=== PATIENT | female | born 1985 | race Caucasian/White ===

== ENCOUNTER 2016-09-30 23:59 | Emergency (ER) | payer OTHER ==
[~2016-09-30] VITALS: Ht 1676 cm; Wt 83.9 kg
[~2016-09-30 23:59] MED LIST: BIAXIN500 MG PO; BIRTH CONTROL1 EAC1 PO; FLONASE ALLERG9.9 ML NAS; HYDROCODONE BIT1 T11 PO; IBU800 M1 PO; LEVAQUIN750 M1 PO; LOESTRIN FE PO; OMNICEF300 MG PO; PREDNISONE20 MG PO; PRENATAL1 TAB PO; SEASONIQUE1 TAB PO; TRAMADOL HCL50 MG PO; VIBRAMYCIN100 MG PO; ZOFRAN ODT4 MG SL
[2016-10-01] MEDS ORDERED: Motrin,Rufen800 MG PO (01:24)
[2016-10-01] MEDS ORDERED: CYCLOBENZAPRINE5 M3 PO (01:24)
== END 2016-10-01 02:45 | disposition home or self-care (01) ==
LOC: ED 23:59
DX: M54.32 Sciatica, left side (principal); G43.909 Migraine, unspecified, not intractable, without status migrainosus; Z88.0 Allergy status to penicillin; Z88.8 Allergy status to other drugs, medicaments and biological substances

== ENCOUNTER → 2016-10-06 | Outpatient (CLI) | payer OTHER ==
[~2016-10-06] MED LIST changes: +CYCLOBENZAPRINE5 M3 PO; +Motrin,Rufen800 MG PO
== END | disposition home or self-care (01) ==
LOC: MRI 07:49
DX: M48.06 Spinal stenosis, lumbar region (principal); M54.42 Lumbago with sciatica, left side; M79.606 Pain in leg, unspecified

== ENCOUNTER 2017-09-04 21:41 | Emergency (ER) | payer OTHER ==
[~2017-09-04] VITALS: Ht 165.1 cm; Wt 89.8 kg
[2017-09-04 22:08] LABS: BILIRUBIN NEGATIVE (NEGATIVE); BLOOD 2+ (NEGATIVE); CLARITY SL CLOUDY (CLEAR); COLOR YELLOW (YELLOW); GLUCOSE NEGATIVE (NEGATIVE); KETONE NEGATIVE (NEGATIVE); LEUKO ESTERASE NEGATIVE (NEGATIVE); NITRITE NEGATIVE (NEGATIVE)
[2017-09-04 22:15] LABS: BACTERIA 3+
[2017-09-04 22:16] LABS: EPITHELIAL CELLS 21-30; MUCOUS TRACE
[2017-09-04 22:20] LABS: BASO # 0.1 10*3/uL (0.0-0.1); BASO % 0.6 % (0.0-1.0); EOS # 0.3 10*3/uL (0.0-0.4); HEMATOCRIT 38.8 % (37.0-47.0); HEMOGLOBIN 12.8 g/dl (12.0-16.0); LYMPH # 2.8 10*3/uL (1.3-4.4); LYMPH % 32.5 % (27.0-41.0); MEAN CELL VOLUME 93.9 fl (81.0-99.0); MONO # 0.4 10*3/uL (0.1-1.0); MONO % 4.8 % (3.0-9.0); NEUT # 5.2 10*3/uL (2.3-7.9); NEUT % 58.9 % (47.0-73.0); PLATELET COUNT AUTOMATED 209 10*3/uL (130-400); RED BLOOD COUNT 4.13 10*6/uL (4.10-5.10); RED CELL DISTRI WIDTH 12.3 % (0-14.5); WHITE BLOOD COUNT 8.7 10*3/uL (4.8-10.8)
[2017-09-04 22:34] LABS: ALBUMIN 3.4 gm/dl (3.1-4.5); ALKALINE PHOSPHATASE 61 U/L (45-117); BUN 13 mg/dl (7-24); CHLORIDE 108 mmol/L (98-107); CREATININE 0.83 mg/dL (0.55-1.02); SGOT/AST 10 IU/L (3-35); SGPT/ALT 18 U/L (12-78); SODIUM 141 mmol/L (136-145)
[2017-09-04] MEDS ORDERED: ZOFRAN ODT4 MG SL (23:52)
== END 2017-09-04 23:59 | disposition home or self-care (01) ==
LOC: ED 21:41
PROVIDERS: Emergency Medicine Emergency Medical Services
DX: G43.B0 Ophthalmoplegic migraine, not intractable (principal); Z79.899 Other long term (current) drug therapy; Z88.0 Allergy status to penicillin; Z88.6 Allergy status to analgesic agent; Z88.8 Allergy status to other drugs, medicaments and biological substances

== ENCOUNTER 2017-12-24 20:07 | Emergency (ER) | payer OTHER ==
[~2017-12-24] VITALS: Ht 165.1 cm; Wt 86.2 kg
== END 2017-12-24 20:59 | disposition home or self-care (01) ==
LOC: ED 20:07
DX: G43.909 Migraine, unspecified, not intractable, without status migrainosus (principal); Z88.0 Allergy status to penicillin; Z88.8 Allergy status to other drugs, medicaments and biological substances; Z79.899 Other long term (current) drug therapy

== ENCOUNTER 2018-04-08 09:02 | Emergency (ER) | payer BC ==
[~2018-04-08] VITALS: Ht 165.1 cm; Wt 86.2 kg
[2018-04-08] MEDS ORDERED: SEPTDS PO (09:35)
[2018-04-08] MEDS ORDERED: IBUPROFEN600 MG PO (09:35)
== END 2018-04-08 11:29 | disposition home or self-care (01) ==
LOC: ED 09:02
DX: S60.012A Contusion of left thumb without damage to nail, initial encounter (principal); Z88.0 Allergy status to penicillin; Z88.8 Allergy status to other drugs, medicaments and biological substances; Z79.899 Other long term (current) drug therapy; W23.0XXA Caught, crushed, jammed, or pinched between moving objects, initial encounter; Y93.89 Activity, other specified; Y92.89 Other specified places as the place of occurrence of the external cause; Y99.8 Other external cause status

== ENCOUNTER 2019-03-10 20:19 | Emergency (ER) | payer BC ==
[~2019-03-10] VITALS: Ht 165.1 cm; Wt 81.6 kg
[~2019-03-10 20:19] MED LIST changes: +IBUPROFEN600 MG PO; +SEPTDS PO
[2019-03-10 20:56] LABS: BILIRUBIN NEGATIVE (NEGATIVE); BLOOD NEGATIVE (NEGATIVE); CLARITY CLEAR (CLEAR); COLOR YELLOW (YELLOW); GLUCOSE NEGATIVE (NEGATIVE); KETONE NEGATIVE (NEGATIVE); LEUKO ESTERASE NEGATIVE (NEGATIVE); NITRITE NEGATIVE (NEGATIVE); SPECIFIC GRAVITY 1.015 (1.005-1.030); UROBILINOGEN 0.2 E.U./dl (0.2-1.0)
[2019-03-10 21:08] LABS: BACTERIA TRACE; EPITHELIAL CELLS 0-2
[2019-03-10 21:15] LABS: BASO % 0.4 % (0.0-1.0); EOS # 0.1 10*3/uL (0.0-0.4); EOS % 1.1 % (1.0-4.0); HEMATOCRIT 40.4 % (37.0-47.0); HEMOGLOBIN 13.4 g/dl (12.0-16.0); LYMPH # 2.8 10*3/uL (1.3-4.4); LYMPH % 29.6 % (27.0-41.0); MEAN CELL VOLUME 93.7 fl (81.0-99.0); MEAN CORPUSCULAR HGB 31.1 pg (27.0-31.0); MEAN CORPUSCULAR HGB CONC 33.2 g/dl (33.0-37.0); MEAN PLATELET VOLUME 12.8 fl (9.6-12.3); MONO # 0.5 10*3/uL (0.1-1.0); MONO % 4.7 % (3.0-9.0); NEUT # 6.1 10*3/uL (2.3-7.9); NEUT % 63.9 % (47.0-73.0); PLATELET COUNT AUTOMATED 241 10*3/uL (130-400); RED BLOOD COUNT 4.31 10*6/uL (4.10-5.10); RED CELL DISTRI WIDTH 11.9 % (0-14.5); WHITE BLOOD COUNT 9.5 10*3/uL (4.8-10.8)
[2019-03-10 21:30] LABS: ALBUMIN 3.1 gm/dl (3.1-4.5); ALKALINE PHOSPHATASE 66 U/L (45-117); BUN 9 mg/dl (7-24); CHLORIDE 108 mmol/L (98-107); CREATININE 0.89 mg/dL (0.55-1.02); LIPASE 121 U/L (73-393); SGOT/AST 15 IU/L (3-35); SGPT/ALT 26 U/L (12-78); SODIUM 139 mmol/L (136-145); TOTAL PROTEIN 7.4 gm/dL (6.4-8.2)
[2019-03-10] MEDS ORDERED: ANAPROX DS550 MG PO (22:19)
== END 2019-03-10 22:35 | disposition home or self-care (01) ==
LOC: ED 20:19
PROVIDERS: Physician Assistant
DX: N83.202 Unspecified ovarian cyst, left side (principal); G43.909 Migraine, unspecified, not intractable, without status migrainosus; Z79.899 Other long term (current) drug therapy; Z88.0 Allergy status to penicillin; Z88.8 Allergy status to other drugs, medicaments and biological substances

== ENCOUNTER 2019-05-17 06:44 | Emergency (ER) | payer BC ==
[~2019-05-17] VITALS: Ht 165.1 cm; Wt 87.1 kg
[~2019-05-17 06:44] MED LIST changes: +ANAPROX DS550 MG PO
[2019-05-17 07:38] LABS: BASO % 0.6 % (0.0-1.0); EOS # 0.2 10*3/uL (0.0-0.4); EOS % 2.2 % (1.0-4.0); HEMATOCRIT 41.2 % (37.0-47.0); HEMOGLOBIN 13.7 g/dl (12.0-16.0); LYMPH # 2.3 10*3/uL (1.3-4.4); LYMPH % 33.4 % (27.0-41.0); MEAN CELL VOLUME 93.4 fl (81.0-99.0); MEAN CORPUSCULAR HGB 31.1 pg (27.0-31.0); MEAN CORPUSCULAR HGB CONC 33.3 g/dl (33.0-37.0); MEAN PLATELET VOLUME 12.3 fl (9.6-12.3); MONO # 0.4 10*3/uL (0.1-1.0); MONO % 5.2 % (3.0-9.0); NEUT % 58.5 % (47.0-73.0); PLATELET COUNT AUTOMATED 249 10*3/uL (130-400); RED BLOOD COUNT 4.41 10*6/uL (4.10-5.10); RED CELL DISTRI WIDTH 12.2 % (0-14.5); WHITE BLOOD COUNT 6.9 10*3/uL (4.8-10.8)
[2019-05-17 07:52] LABS: ALBUMIN 3.4 gm/dl (3.1-4.5); ALKALINE PHOSPHATASE 60 U/L (45-117); BUN 12 mg/dl (7-24); CHLORIDE 109 mmol/L (98-107); CREATININE 0.85 mg/dL (0.55-1.02); POTASSIUM 3.9 mmol/L (3.5-5.1); SGOT/AST 16 IU/L (3-35); SGPT/ALT 27 U/L (12-78); SODIUM 140 mmol/L (136-145); TOTAL PROTEIN 7.6 gm/dL (6.4-8.2)
[2019-05-17 08:05] LABS: BILIRUBIN NEGATIVE (NEGATIVE); BLOOD 3+ (NEGATIVE); CLARITY CLOUDY (CLEAR); COLOR YELLOW (YELLOW); GLUCOSE NEGATIVE (NEGATIVE); KETONE NEGATIVE (NEGATIVE); SPECIFIC GRAVITY 1.025 (1.005-1.030)
[2019-05-17 08:06] LABS: BACTERIA 2+; LEUKO ESTERASE TRACE (NEGATIVE); NITRITE NEGATIVE (NEGATIVE); UROBILINOGEN 0.2 E.U./dl (0.2-1.0)
[2019-05-17] MEDS ORDERED: Motrin,Rufen800 MG PO (12:00)
== END 2019-05-17 12:30 | disposition home or self-care (01) ==
LOC: ED 06:44
PROVIDERS: Emergency Medicine
DX: R10.9 Unspecified abdominal pain (principal); R11.0 Nausea; K59.00 Constipation, unspecified; G43.909 Migraine, unspecified, not intractable, without status migrainosus; Z88.0 Allergy status to penicillin; Z88.8 Allergy status to other drugs, medicaments and biological substances

== ENCOUNTER 2019-12-25 09:55 | Emergency (ER) | payer BC ==
[~2019-12-25] VITALS: Ht 165.1 cm; Wt 90.7 kg
[2019-12-25 10:55] LABS: BASO % 0.6 % (0.0-1.0); EOS # 0.1 10*3/uL (0.0-0.4); EOS % 1.3 % (1.0-4.0); HEMATOCRIT 40.5 % (37.0-47.0); LYMPH # 1.7 10*3/uL (1.3-4.4); LYMPH % 27.6 % (27.0-41.0); MEAN CELL VOLUME 93.3 fl (81.0-99.0); MEAN CORPUSCULAR HGB 30.4 pg (27.0-31.0); MEAN CORPUSCULAR HGB CONC 32.6 g/dl (33.0-37.0); MONO # 0.3 10*3/uL (0.1-1.0); MONO % 4.5 % (3.0-9.0); NEUT # 4.1 10*3/uL (2.3-7.9); NEUT % 65.8 % (47.0-73.0); PLATELET COUNT AUTOMATED 264 10*3/uL (130-400); RED BLOOD COUNT 4.34 10*6/uL (4.10-5.10); WHITE BLOOD COUNT 6.2 10*3/uL (4.8-10.8)
[2019-12-25 11:09] LABS: ALBUMIN 3.2 gm/dl (3.1-4.5); ALKALINE PHOSPHATASE 55 U/L (45-117); BUN 10 mg/dl (7-24); CHLORIDE 109 mmol/L (98-107); CREATININE 0.73 mg/dL (0.55-1.02); LIPASE 63 U/L (73-393); POTASSIUM 3.8 mmol/L (3.5-5.1); SGOT/AST 10 IU/L (3-35); SGPT/ALT 21 U/L (12-78); SODIUM 139 mmol/L (136-145); TOTAL PROTEIN 7.4 gm/dL (6.4-8.2)
[2019-12-25 11:25] LABS: BILIRUBIN Negative; BLOOD 2+ (NEGATIVE); CLARITY Clear (CLEAR); COLOR Yellow (YELLOW); GLUCOSE Negative; KETONE Negative; SPECIFIC GRAVITY 1.025 (1.001-1.030)
[2019-12-25 11:26] LABS: LEUKO ESTERASE Negative (NEGATIVE); NITRITE Negative (NEGATIVE); UROBILINOGEN 0.2 E.U./dl (0.0-1.0)
[2019-12-25 11:35] LABS: BACTERIA 1+; MUCOUS 1+
== END 2019-12-25 13:49 | disposition home or self-care (01) ==
LOC: ED 09:55
PROVIDERS: Physician Assistant
DX: K92.1 Melena (principal); Z88.0 Allergy status to penicillin; Z88.8 Allergy status to other drugs, medicaments and biological substances; Z79.899 Other long term (current) drug therapy

== ENCOUNTER 2020-11-15 13:46 | Emergency (ER) | payer BC ==
[~2020-11-15] VITALS: Ht 165.1 cm; Wt 90.7 kg
[2020-11-15 14:24] LABS: BASO # 0.1 10*3/uL (0.0-0.1); BASO % 0.4 % (0.0-1.0); EOS # 0.1 10*3/uL (0.0-0.4); EOS % 0.6 % (1.0-4.0); HEMATOCRIT 40.5 % (37.0-47.0); LYMPH # 2.9 10*3/uL (1.3-4.4); LYMPH % 23.4 % (27.0-41.0); MEAN CELL VOLUME 92.7 fl (81.0-99.0); MEAN CORPUSCULAR HGB 30.7 pg (27.0-31.0); MEAN CORPUSCULAR HGB CONC 33.1 g/dl (33.0-37.0); MEAN PLATELET VOLUME 12.6 fl (9.6-12.3); MONO # 0.5 10*3/uL (0.1-1.0); MONO % 4.2 % (3.0-9.0); NEUT # 8.9 10*3/uL (2.3-7.9); NEUT % 71.2 % (47.0-73.0); PLATELET COUNT AUTOMATED 259 10*3/uL (130-400); RED BLOOD COUNT 4.37 10*6/uL (4.10-5.10); RED CELL DISTRI WIDTH 12.2 % (0-14.5); WHITE BLOOD COUNT 12.5 10*3/uL (4.8-10.8)
[2020-11-15 14:37] LABS: ALBUMIN 3.4 gm/dl (3.1-4.5); ALKALINE PHOSPHATASE 60 U/L (45-117); BUN 11 mg/dl (7-24); CHLORIDE 106 mmol/L (98-107); CREATININE 0.84 mg/dL (0.55-1.02); LIPASE 102 U/L (73-393); POTASSIUM 3.8 mmol/L (3.5-5.1); SGOT/AST 15 IU/L (3-35); SGPT/ALT 21 U/L (12-78); SODIUM 137 mmol/L (136-145); TOTAL PROTEIN 7.7 gm/dL (6.4-8.2)
[2020-11-15 18:50] LABS: BILIRUBIN Negative (Negative); BLOOD Negative (Negative); CLARITY Clear (Clear); COLOR Yellow (Yellow); GLUCOSE Negative (Negative); KETONE Negative (Negative); LEUKO ESTERASE Negative (Negative); NITRITE Negative (Negative)
[2020-11-15 19:12] LABS: BACTERIA 2+
[2020-11-15] MEDS ORDERED: IBUPROFEN600 MG PO (19:42)
== END 2020-11-15 20:10 | disposition home or self-care (01) ==
LOC: ED 13:46
PROVIDERS: Physician Assistant
DX: N83.202 Unspecified ovarian cyst, left side (principal); Z88.0 Allergy status to penicillin; Z88.8 Allergy status to other drugs, medicaments and biological substances; Z79.899 Other long term (current) drug therapy

== ENCOUNTER 2023-08-15 22:36 | Emergency (ER) | payer OTHER ==
[~2023-08-15] VITALS: Ht 167.6 cm; Wt 101.2 kg
== END 2023-08-15 23:34 | disposition home or self-care (01) ==
LOC: ED 22:36
PROVIDERS: Physician Assistant Medical
DX: S60.932A Unspecified superficial injury of left thumb, initial encounter (principal); G43.909 Migraine, unspecified, not intractable, without status migrainosus; Z88.0 Allergy status to penicillin; Z88.8 Allergy status to other drugs, medicaments and biological substances; W46.0XXA Contact with hypodermic needle, initial encounter; Y93.89 Activity, other specified; Y92.239 Unspecified place in hospital as the place of occurrence of the external cause; Y99.0 Civilian activity done for income or pay

== ENCOUNTER 2025-01-07 12:26 | Emergency (ER) | payer OTHER ==
[~2025-01-07] VITALS: Ht 165.1 cm; Wt 95.3 kg
[2025-01-07] MEDS ORDERED: AMOX-CLAV 875-1 EACH PO (12:31)
[2025-01-07 13:04] LABS: BILIRUBIN Negative (Negative); BLOOD Negative (Negative); CLARITY Clear (Clear); COLOR Yellow (Yellow); KETONE Negative (Negative); LEUKO ESTERASE Negative (Negative); NITRITE Negative (Negative); PH 6.0 (4.5-8.0); SPECIFIC GRAVITY 1.015 (1.001-1.030); UROBILINOGEN 0.2 E.U./dl (0.0-1.0)
[2025-01-07] MEDS ORDERED: SODIUM CHLORIDE 0.9% 1,000 ML IV ONE (13:05)
[2025-01-07] MEDS ORDERED: Ondansetron Hydrochloride 4 MG/2 ML VIAL IV ONE (13:10)
[2025-01-07 13:19] LABS: BASO # 0.1 10*3/uL (0.0-0.1); BASO % 0.6 % (0.0-1.0); EOS # 0.0 10*3/uL (0.0-0.4); EOS % 0.3 % (1.0-4.0); MEAN CELL VOLUME 93.3 fl (81.0-99.0); MEAN CORPUSCULAR HGB 31.3 pg (27.0-31.0); MEAN PLATELET VOLUME 11.8 fl (9.6-12.3); MONO # 0.4 10*3/uL (0.1-1.0); MONO % 3.4 % (3.0-9.0); NEUT # 8.4 10*3/uL (2.3-7.9); NEUT % 73.2 % (47.0-73.0); NUCLEATED RED BLOOD CELL 0.0 % (0.0-0.0); NUCLEATED RED BLOOD CELL 0.0 10*3/uL (0.0-0.0); PLATELET COUNT AUTOMATED 289 10*3/uL (130-400); RED CELL DISTRI WIDTH 12.1 % (0-14.5)
[2025-01-07 13:28] LABS: BACTERIA TRACE; CALCIUM OXALATE CRYSTALS Trace
[2025-01-07 13:41] LABS: BUN 6 mg/dl (9-23); SGPT/ALT 11 U/L (5-49)
[2025-01-07] MEDS ORDERED: MIRALAX POWDER17 G1 PO (16:23)
[2025-01-07] MEDS ORDERED: COLACE100 MG PO (16:23)
== END 2025-01-07 16:52 | disposition home or self-care (01) ==
LOC: ED 12:26
PROVIDERS: Nurse Practitioner
DX: R14.3 Flatulence (principal); R10.31 Right lower quadrant pain; R11.0 Nausea; R19.7 Diarrhea, unspecified; Z87.42 Personal history of other diseases of the female genital tract; Z88.0 Allergy status to penicillin; Z88.8 Allergy status to other drugs, medicaments and biological substances; Z79.899 Other long term (current) drug therapy